=== PATIENT | female | born 1975 | race Caucasian/White ===

== ENCOUNTER 2025-06-15 09:59 | Outpatient (CLI) | payer SELFPAY ==
--- NOTE | ~2025-06-15 | DEXA_ITS ---
Bone Density Report Name: PATY CARREON Age: 49 Sex: Female Ethnicity: White Date of : 1975 Indication: postmenopausal; Referring Provider: MATHEUS DONATO Study: Bone densitometry was performed. Exam Date: June 15, 2025 Accession number: [id number] Bone Density: Region BMD T-score Z-score Classification AP Spine(L1-L4) 0.736 -2.8 -2.1 Osteoporosis Femoral Neck (Left) 0.527 -2.9 -2.2 Osteoporosis Total Hip (Left) 0.708 -1.9 -1.5 Osteopenia Femoral Neck (Right) 0.533 -2.8 -2.1 Osteoporosis Total Hip (Right) 0.670 -2.2 -1.8 Osteopenia Femoral Neck Mean 0.530 -2.9 -2.2 Osteoporosis Total Hip Mean 0.689 -2.1 -1.6 Osteopenia World Health Organization criteria for BMD impression classify patients as: Normal (T-score at or above -1.0), Osteopenia (T-score between -1.0 and -2.5), or Osteoporosis (T-score at or below -2.5). 10-year Fracture Risk: FRAX not reported because: Some T-score for Spine Total or Hip Total or Femoral Neck at or below -2.5 Clinical Information Provided by Patient: Has used the following medications: Vitamin D, Calcium Patient maximum height was 62 Menopause Age: 48 No regular weight bearing exercise Does not regularly consume dairy products Onset of menses at age 16 Number of children 1 Impression: The patient has osteoporosis, based on the Left Femoral Neck T-score. Discussion: HIGH RISK OF FRACTURE. BONE DENSITY IS UNDESIRABLY LOW AT ONE OR MORE SKELETAL SITES, CONSISTENT WITH OSTEOPOROSIS. ALSO, BONE DENSITY IS LOWER THAN EXPECTED FOR AGE AND SEX AT ONE OR MORE SKELETAL SITES; RECOMMEND A DILIGENT SEARCH FOR SECONDARY CAUSES OF BONE LOSS. This patient's lowest T-score meets the World Health Organization's (WHO) criteria for osteoporosis at one or more sites (T-score -2.5 or below). In untreated patients, the risk of osteoporotic fracture increases approximately two-fold for each 1.0 SD decrease in T-score. Low bone density is not the only risk factor for fracture; also consider factors such as patient's age, frailty or poor health, risk of falling, risk of injury, previous osteoporotic fracture, family history of osteoporosis, cigarette smoking, low body weight, etc. Not everyone with low bone mineral density has osteoporosis; osteomalacia and other metabolic bone disorders should also be considered. Patients who have osteoporosis should be evaluated for specific diseases and conditions (secondary causes) that may cause or contribute to bone loss. The [place] Association of Clinical Endocrinologists (AACE) and National Osteoporosis Foundation (NOF) recommend pharmacologic intervention for all postmenopausal women whose T-score is in this range. Also, this patient's bone mineral density is below the range considered normal for healthy age-, sex-, and race-matched controls at least one site (Z-score -2.0 or below). This warrants careful evaluation for diseases and conditions that may contribute to accelerated bone loss. The patient should follow a healthful lifestyle (good nutrition with adequate calcium and vitamin D, and appropriate weight-bearing exercise). Follow-Up: Consider a repeat BMD and Vertebral Fracture Assessment (VFA) exam in 2 years or sooner if medically necessary, to reassess this patient's status. Reported by: DUSTIN on 06/15/2025 10:22:00 AM. Reviewed, dictated and finalized at location A.
--- OUTSIDE RECORDS SUMMARY | 2025-06-15 10:12 | XMS_ITS | Encounter Summary ---
Author Organization [facility] Health Address [address] [place] [address] Care Team Providers Care Portfolio Architect Name Role Phone Elisabeth Jones MD Primary Care Provider [phone] Kareen Ribeiro RN Unavailable [phone] Penelope Marquez DO Primary Care Provider [phone] Encounter Details Date Type Department Care Team (Late st Contact Info) Description 11/04/2016 [facility] Outpatient Visit [facility] [address] [place] [address] Adán Damon MD [address] [facility] [address] [place] [address] Social History Tobacco Use Types Packs/Day Years Used Date Smoking Tobacco: Never Smokeless Tobacco: Never Alcohol Use Standard Drinks/Week Comments Yes 0 (1 standard drink = 0.6 oz pur e alcohol) rare Comments No Sex and Gender Information Value Date Recorded Sex Assigned at Not on file Legal Sex Female 1:04 PM PRESS TOOL MAKER Gender Identity Not on file Sexual Orientation Not on file 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 Answer Date of Assessment Author No 10/15/2016 5:52 PM PRESS TOOL MAKER Viji Lyons RN * Is person blind or have serious difficulty seeing? Answer Date of Assessment Author No 10/15/2016 5:52 PM PRESS TOOL MAKER Viji Lyons RN * Does person have serious difficulty walking/climbing stairs? Answer Date of Assessment Author No 10/15/2016 5:52 PM Viji Scott RN * Does person have difficulty dressing/bathing? Answer Date of Assessment Author No 10/15/2016 5:52 PM Viji Scott RN * Does person have difficulty doing errands alone? Answer Date of Assessment Author No 10/15/2016 5:52 PM Viji Scott RN documented as of this encounter Mental Status * Does person have difficulty concentrating/remembering/making decisions? Answer Entry Date Author No 10/15/2016 5:52 PM Viji Scott RN documented in this encounter Plan of Treatment Not on file documented as of this encounter Visit Diagnoses Not on filedocumented in this encounter Care Teams Portfolio Architect Relationship Specialty Start [place] [address] [facility] [address] [place] [address] PCP - General 12/30/11 11/10/16 Penelope Marquez DO [address] [facility] [address] [place] [address] PCP - General Internal Medicine 10/13/18 [place] [address] [facility] [address] [place] [address] Llama Farmer 10/16/16 documented as of this encounter
--- OUTSIDE RECORDS SUMMARY | 2025-06-15 10:12 | XMS_ITS | Continuity of Care Document ---
Author Name [facility] Organization [facility] Care Team Providers Care Station Attendant Name Role Phone [facility] Unavailable Unavailable Social History Combined list of available smoking, tobacco, and other social history from Department of Defense and Veterans Affairs facilities. Social History Type Response Date Comment Sourc e This section is an empty social history section. [facility]
--- OUTSIDE RECORDS SUMMARY | 2025-06-15 10:12 | XMS_ITS | Clinical Summary ---
Author Organization [facility] Address [address] [place] [address] Care Team Providers Care Concrete Vault Maker Name Role Phone Kareen Ribeiro RN Unavailable [phone] Penelope Marquez DO Primary Care Provider [phone] Source Comments [facility],non-owned Affiliates and Associated Physician Practices is amultiple site organization consisting of ambulatory clinics and hospital sitesin [place], [place], [place] and [place]. This disclosure is being madepursuant to the Care Everywhere program and may not contain all information available regarding this patient. Last updated 18.[facility] Allergies Active Allergy Reactions Criticality Noted Date Comments Food Headache 10/20/2016 Artificial Sweeteners Medications * Be aware that medications may not be up to date on this document. Alwaysverify current medications with the patient. melatonin 3 MG tabletIndicati ons:Insomnia Take 10 mg by mouth at bedtime Reasons: Trouble Sleeping Active acetaminophen (TYLENOL) 325 MG tablet Take 325 mg by mouth every 4 hours as needed for Fever, Pain or Headache Maximum allowable Acetaminophen amount = 4 Grams (4000 mg) / 24 hours. 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 Using knee brace intermittently. Seen by dr Burns on 09/19/2011 who has recommended physical therapy. Surgical treatment is not being considered at this time.(09/24/2011) Knee pain 09/09/2011 GERD (gastroesophageal reflux disease) 0 Insomnia 10/19/2010 Depression 10/19/2010 Generalized anxiety disorder 10/19/2010 Migraine 10/19/2010 Axillary lymphadenopathy 10/19/2010 Family History Medical History Relation Name Comments Stroke Maternal Grandfather Arthritis - Rheumatoid Other 1 pater nal aunt Arthritis Other 2 Paternal aunt r heumatoid arthritis Arthritis - Rheumatoid Other 2 mater nal aunt Cancer Other 3 maternal uncle, pancreatic Cancer Other 4 maternal aunt, breast Cancer Paternal Grandmother stomach Relation Name Status Comments Father Alive Maternal Grandfather Maternal Grandmother Mother Alive Other 1 Other 2 Other 3 Other 4 Paternal Grandfather Paternal Grandmother Alive stomach cancer Sister 1 Alive Son Alive Social History Tobacco Use Types Packs/Day Years Used Date Smoking Tobacco: Never Smokeless Tobacco: Never Alcohol Use Standard Drinks/Week Comments Yes 0 (1 standard drink = 0.6 oz pur e alcohol) rare Comments No Sex and Gender Information Value Date Recorded Sex Assigned at Not on file Legal Sex Female 1:04 PM CROWN ATTACHER Gender Identity Not on file Sexual Orientation Not on file 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 Not on file Not on file Not on file Last Filed Vital Signs Vital Sign Reading Time Taken Comments Blood Pressure 113/82 10/13/2018 10:27 AM CROWN ATTACHER Pulse 71 10/13/2018 10:27 AM CROWN ATTACHER Temperature 36.3 C (97.3 F) 10/13/2018 7:51 AM CROWN ATTACHER Respiratory Rate 20 10/13/2018 10:27 AM CROWN ATTACHER Oxygen Saturation 100% 10/13/2018 10:27 AM CROWN ATTACHER Inhaled Oxygen Concentration - - Weight 51.7 kg (114 lb) 10/13/2018 7:51 AM CROWN ATTACHER Height 157.5 cm (5' 2) 10/13/2018 7:51 AM CROWN ATTACHER Body Mass Index 20.85 10/13/2018 7:51 AM CROWN ATTACHER Plan of Treatment Health Maintenance Due Date Last Done Comments COLOGUARD (AGES 45-75) - COL ON CA SCREENING 1975 CT COLONOGRAPHY - COLON CA SCREENING 1975 FIT - COLON CA SCREENING 1975 FLEX SIG - COLON CA SCREENING 1975 HIV SCREENING 1990 HEPATITIS C SCREENING 12/08/1993 DTAP/TDAP/TD VACCINES (1 - Tdap) 1994 HEPATITIS B VACCINE (1 of 3 - 19+ 3-dose series) 1994 MAMMOGRAM 01/01/2014 01/01/2012 PAP SMEAR 12/30/2014 12/30/2011 LIPID TESTING 09/21/2015 09/21/2010 COVID-19 VACCINE (1 - 2023-2 5 season) 2024 DEPRESSION SCREENING 12/01/2024 INFLUENZA VACCINE (#1) 2025 ZOSTER VACCINE (1 of 2) 2025 COLON MONITORING 10/16/2026 10/16/2016, 10/16/2016 COLONOSCOPY - COLON CA SCREENING 10/16/2026 10/16/2016, 10/16/2016 Colorectal Cancer Screening 10/16/2026 HIB VACCINE Aged Out No longer eligi ble based on patient's age to complete this topic HPV VACCINE Aged Out No longer eligi ble based on patient's age to complete this topic MENINGOCOCCAL (Group B) VACCINE SHARED DECISION-MAKING Aged Out No longer eligible based on patient's age to complete this topic MENINGOCOCCAL GROUPS A/C/Y/W VACCINE Aged Out No longer eligible b ased on patient's age to complete this topic Procedures Procedure Name Priority Date/Time Associated Diagnosis Comments ENDOSCOPY, COLON, DIAGNOSTIC Routine 10/16/2016 12:56 PM CROWN ATTACHER MAMMO BILAT DIAGNOSTIC Routine 01/01/2012 1:41 PM CROWN ATTACHER Breast pain PAP IG RFLX HPV ASCU Routine 12/30/2011 11:34 AM CROWN ATTACHER Routine gynecological examination LIPID PROFILE Routine 09/21/2010 11:07 AM CDT Routine general medical examination at a health care facility from Last 3 Months or Most Recently Relevant to Health Maintenance Results * ENDOSCOPY, COLON, DIAGNOSTIC (10/16/2016 12:56 PM CROWN ATTACHER) Report Endoscopy POC _ Patient Name: Pooja Carreon Procedure Date: 10/16/2016 12:56 PM Date of : 1975 Admit Type: Inpatient Age: 40 Gender: Female Attending MD: Kojo Fernandes MD _ Procedure: Colonoscopy Indications: Volvulus Providers: Kojo Fernandes MD (Doctor) Patient Profile: This is a 40 year old female. Referring MD: Missy Gray Md (Referring MD) Medicines: Monitored Anesthesia Care Complications: No immediate complications. Estimated blood loss: None. _ Procedure: Pre-Anesthesia Assessment: - Prior to the procedure, a History and Physical was performed, and patient medications and allergies were reviewed. The patient is competent. The risks and benefits of the procedure and the sedation options and risks were discussed with the patient. All questions were answered and informed consent was obtained. Patient identification and proposed procedure were verified by the physician, the nurse, the facilities maintenance worker and the automotive lube technician in the procedure room. Mental Status Examination: alert and oriented. Airway Examination: normal oropharyngeal airway and neck mobility. Respiratory Examination: clear to auscultation. CV Examination: normal. Prophylactic Antibiotics: The patient does not require prophylactic antibiotics. Prior Anticoagulants: The patient has taken no previous anticoagulant or antiplatelet agents. ASA Grade Assessment: II - A patient with mild systemic disease. After reviewing the risks and benefits, the patient was deemed in satisfactory condition to undergo the procedure. The anesthesia plan was to use monitored anesthesia care (MAC). Immediately prior to administration of medications, the patient was re-assessed for adequacy to receive sedatives. The heart rate, respiratory rate, oxygen saturations, blood pressure, adequacy of pulmonary ventilation, and response to care were monitored throughout the procedure. The physical status of the patient was re-assessed after the procedure. After I obtained informed consent, the scope was passed under direct vision. Throughout the procedure, the patient's blood pressure, pulse, and oxygen saturations were monitored continuously. The Colonoscope was introduced through the anus with the intention of advancing to the cecum. The scope was advanced to the transverse colon before the procedure was aborted. Medications were given. The colonoscopy was performed without difficulty. The patient tolerated the procedure well. The quality of the bowel preparation was poor. The colonoscopy was aborted due to poor endoscopic visualization. Findings: The perianal and digital rectal examinations were normal. A volvulus, with viable appearing mucosa, was found in the mid sigmoid colon. Decompression of the volvulus was attempted and was successful, with complete decompression achieved. A large amount of stool was found in the entire colon, interfering with visualization. _ Impression: - Preparation of the colon was poor. - The procedure was aborted due to poor endoscopic visualization. - Volvulus. Successful complete decompression achieved. - Stool in the entire examined colon. - No specimens collected. Recommendation: - Sigmoid colectomy - per Dr. Damon - Clear liquid diet. Procedure Code(s): --- Professional --- 48417, 52, Colonoscopy, flexible; with decompression (for pathologic distention) (eg, volvulus, megacolon), including placement of decompression tube, when performed --- Technical --- 49623, 52, Colonoscopy, flexible; with decompression (for pathologic distention) (eg, volvulus, megacolon), including placement of decompression tube, when performed Diagnosis Code(s): --- Professional --- Z53.8, Procedure and treatment not carried out for other reasons K56.2, Volvulus --- Technical --- Z53.8, Procedure and treatment not carried out for other reasons K56.2, Volvulus CPT copyright 2015 [employer]. All rights reserved. The codes documented in this report are preliminary and upon industrial safety and health specialist review may be revised to meet current compliance requirements. Kojo Fernandes MD 10/16/2016 1:17:33 PM This report has been signed electronically. Number of Addenda: 0 Note Initiated On: 10/16/2016 12:56 PM HILL TRAN 10/16/2016 12:5 6 PM CROWN ATTACHER Kojo Fernandes MD GI PROCEDURE ORDERABLES Edited Result - Final [facility] * MAMMO DIAG DIRECT DIGITAL IMAGE BILA (01/01/2012 1:41 PM CROWN ATTACHER) Anatomical Region Laterality Modality Bilateral Mammography 01/01/2012 2:12 PM CROWN ATTACHER Impressions 01/01/2012 2:12 PM CROWN ATTACHER No Mammographic Evidence of Malignancy. BIRADS: 1 negative. RECOMMENDATION: Annual Screening Mammograms. Narrative 01/01/2012 2:12 PM CROWN ATTACHER EXAM: BILATERAL DIAGNOSTIC MAMMOGRAM COMPARISON: None FINDINGS: Bilateral diagnostic mammograms were obtained. CAD was utilized in the interpretation of this exam. The breast composition is bladder leak dense which may decrease sensitivity of mammography. There is no evidence of a dominant mass, spiculation, grouped microcalcifications, or architectural distortion to suggest malignancy. Procedure Note Hero [place] MD - 02/01/2012 EXAM: BILATERAL DIAGNOSTIC MAMMOGRAM COMPARISON: None FINDINGS: Bilateral diagnostic mammograms were obtained. CAD was utilized in the interpretation of this exam. The breast composition is bladder leak dense which may decrease sensitivity of mammography. There is no evidence of a dominant mass, spiculation, grouped microcalcifications, or architectural distortion to suggest malignancy. IMPRESSION No Mammographic Evidence of Malignancy. BIRADS: 1 negative. RECOMMENDATION: Annual Screening Mammograms. Cherelle Ruiz MD MAMMO ORDERABLES Final Resu lt * PAP SMEAR IG RFLX HPV ASCU (PO REF LAB) (12/30/2011 11:34 AM CROWN ATTACHER) Diagnosis [facility] ACCOUNT BILL Comment:NEGATIVE FOR INTRAEP ITHELIAL LESION AND MALIGNANCY. Specimen Adequacy [facility] ACCOUNT BILL Comment: Satisfactory for evaluation. Endocervical and/or squamous metaplastic cells (endocervical component) are present. Clinician Provided ICD9 [facility] ACCOUNT BILL Comment: V72.31 ; Routine gynecological examination 611.71 ; Mastodynia Performed by [facility] ACCOUNT BILL Comment:Geni Brooks, Cytotec hnologist (ASCP) Comment . [facility] ACCOUNT BILL Note [facility] ACCOUNT BILL Comment: The Pap smear is a screening test designed to aid in the detection of premalignant and malignant conditions of the uterine cervix. It is not a diagnostic procedure and should not be used as the sole means of detecting cervical cancer. Both false-positive and false-negative reports do occur. . IGLBP CPT Code Automation [facility] ACCOUNT BILL Comment: This liquid based ThinPrep(R) pap test was screened with the use of an image guided system. Reflex [facility] ACCOUNT BILL Comment: The HPV DNA reflex criteria were not met with this specimen result therefore, no HPV testing was performed. . MICROSCOPIC CYTOLOGIC EXAMINATION OF SMEAR OF SPECIMEN FROM FEMALE GENITAL TRACT PREPARED USING PAPANICOLAOU TECHNIQUE / Unknown 12/30/2011 11:34 AM CROWN ATTACHER 12/31/2011 10:11 AM CROWN ATTACHER Narrative [facility] ACCOUNT BILL - 01/02/2012 12:18 PM CROWN ATTACHER No. of containers..01 CYTYC Thin Prep Vial Resulting Agency Comment [address] [phone] [place] Cherelle Ruiz MD LAB - PATHOLOGY/CYTOLOGY OR DERABLES Final Result Performing Organization Address City/[facility]/ZIP Co de Phone Number [facility] ACCOUNT BILL [address] [place] [address] * LIPID PROFILE (09/21/2010 11:07 AM CDT) Cholesterol 142 100 - 199 mg/dL [facility] ACCOUNT BILL Triglycerides 40 0 - 149 mg/dL [facility] ACCOUNT BILL HDL Cholesterol 61 >39 mg/dL [facility] ACCOUNT BILL Comment: According to ATP-III Guidelines, HDL-C >59 mg/dL is considered a negative risk factor for CHD. VLDL Calculated 8 5 - 40 mg/dL [facility] ACCOUNT BILL LDL Calculated 73 0 - 99 mg/dL [facility] ACCOUNT BILL BLOOD SPECIMEN / Unknown 09/21/2010 11:07 AM CDT 09/21/2010 5:41 PM CDT Narrative Resulting Agency Comment [facility] [address] [facility] [phone] Awilda Alejo MD LAB - CHEMISTRY ORDERABLES Fin al Result Performing Organization Address City/[facility] Co de Phone Number [facility] ACCOUNT BILL [address] [place] [address] from Last 3 Months or Most Recently Relevant to Health Maintenance Insurance [place] Advance Directives * Full Code (Latest Code Status on File) Date Activated Date Inactivated Comments 10/18/2016 11:37 AM 10/22/2016 3:56 PM * Full Code Date Activated Date Inactivated Comments 10/15/2016 3:00 PM 10/18/2016 11:37 AM Care Teams Concrete Vault Maker Relationship Specialty Start Date End Date Penelope Marquez DO [address] [place] [id number] PCP - General Internal Medicine 10/13/18 Kareen Ribeiro, RN Barker Operator 10/16/16
== END 2025-06-15 10:00 | disposition home or self-care (01) ==
LOC: CHSIMG 10:01
PROVIDERS: PCP Physician Assistant Medical; Visit Provider Physician Assistant Medical
DX: S82.875A Nondisplaced pilon fracture of left tibia, initial encounter for closed fracture (principal); M81.0 Age-related osteoporosis without current pathological fracture; M85.89 Other specified disorders of bone density and structure, multiple sites
CPT/HCPCS: 77080